=== PATIENT | female | born 1960 | race Caucasian/White ===

== ENCOUNTER 2016-09-21 06:10 | Day surgery (SDC) | payer BC ==
[2016-09-18 12:12] LABS: HEMATOCRIT 42.8 % (36.0-48.0); HEMOGLOBIN 14.2 g/dL (12-16); MCHC 33.2 g/dL (31.0-37.0); MCV 90.3 fL (80.0-100.0); MEAN PLATELET VOLUME 10.7 fL (7.4-10.4); RBC 4.74 10x6/uL (4.00-5.40); RDW 14.4 % (11.5-14.5)
[2016-09-18 12:24] LABS: APTT 25.2 SECONDS (22.8-39.4); INR 0.86 (0.85-1.17); PROTIME 11.6 SECONDS (11.6-15.0)
[~2016-09-21] VITALS: Ht 157.5 cm; Wt 68.0 kg
[~2016-09-21 06:10] MED LIST: CATAPRES0.1 MG; LEXAPRO20 MG PO
[2016-09-21 10:09] VITALS: BP 122/73; Ht 157.5 cm; Wt 68.0 kg
[2016-09-21] MEDS ORDERED: PERCOCET 10/3251 TA1 PO (14:39)
--- NOTE | 2016-09-21 15:08 | NUR ---
RECIVED PT FROM YA TA RN AT THIS TIME IN STABLE CONDITION
--- NOTE | 2016-09-21 16:35 | NUR ---
AMBULATING AROUND ROOM WITH CRUTCHES, WITH NO UNSTEADINESS OR DIZZINESS. PIV DC'D WITH TIP INTACT. PATIENT DRESSING IN PERSONAL CLOTHING WITH SPOUSE ASSISTANCE
--- NOTE | 2016-09-21 16:50 | NUR ---
DISCHARGE INSTRUCTIONS REVIEWED WITH PATIENT AND SPOUSE, PATIENT DISCHARGED HOME VIA WHEELCHAIR TO PRIVATE VEHICLE WITH SPOUSE
--- NOTE | 2016-09-25 14:19 | OP ---
PATIENT NAME: GAGANDEEP ESTRELLA MEDICAL RECORD: [id number] :62 LOCATION:[facility] ADMISSION DATE: SURGEON: RAYMOND CHATTERJEE MD DATE OF OPERATION: 09/21/2016 PREOPERATIVE DIAGNOSIS: Compressed posterior lateral tibial plateau fracture. POSTOPERATIVE DIAGNOSIS: Compressed posterior lateral tibial plateau fracture. PROCEDURES: 1. Left knee arthroscopy. 2. Left knee subchondroplasty with AccuFill. SURGEON: Raymond Chatterjee MD. ANESTHESIA: General. INTRAOPERATIVE COMPLICATIONS: None. SUMMARY OF PATHOLOGIC FINDINGS: Consistent with the preoperative MRI, the patient had a depressed posterior corner tibial plateau fracture. Nonoperative treatment had been tried for several weeks. The patient continued to have significant pain. OPERATIVE SUMMARY IN DETAIL: After obtaining the appropriate preoperative orthopedic surgery consent as well as anesthetic consultation, evaluation and clearance, the patient was brought to the operating room and placed on the operating table in supine position. After general laryngeal mask was administered, tourniquet was placed about the proximal aspect of the left lower extremity. The left lower extremity was then prepped and draped in a routine sterile fashion. The leg was elevated and exsanguinated. Tourniquet was inflated to 350 mmHg. Routine inferolateral portal was established followed by superior medial portal and inferior medial portal. Diagnostic arthroscopy revealed the patient to have relatively clean inside. The small area of depression was seen on the chondral surface; however, there was no chondral deficit or splitting. At this point, C-arm was brought in and the AccuFill trocar was guided on AP and lateral planes with the C-arm into the posterolateral corner of the tibial plateau. AccuFill was then deployed in the usual fashion. All syringes were used. Having completed this, repeat arthroscopy showed that there was no AccuFill inside the joint itself. Arthroscopy portals then were closed with 4-0 Prolene in routine interrupted fashion. After the appropriate amount of time had passed, the trocar was removed. Sterile dressings were applied. Tourniquet was deflated. The patient was awakened, taken to recovery in stable condition. All final needle and sponge counts were correct. TRANSINT:[id number] Voice Confirmation ID: [id number] DOCUMENT ID: [id number] OPERATIVE REPORT [id number] ESTRELLAGAGANDEEP OLGUIN MD, RAYMOND CHATTERJEE at 1419 CC: [id number] DICTATION DATE: 09/25/16910 ACTIVITIES CONCIERGE: 09/25/16 1210 [facility] 09/21/16 [facility] [address] [place] [address]
== END 2016-09-21 16:50 | disposition home or self-care (01) ==
LOC: D.OPS 06:10 → D.PAN 14:00 → D.OPS 16:50
PROVIDERS: Anesthesiology
DX: S82.142A Displaced bicondylar fracture of left tibia, initial encounter for closed fracture (principal); Z01.812 Encounter for preprocedural laboratory examination

== ENCOUNTER → 2018-07-11 15:00 | Outpatient (CLI) | payer BC ==
[2016-09-21 10:09] VITALS: BMI 27.5
[~2018-07-11 15:00] MED LIST changes: +PERCOCET 10/3251 TA1 PO
== END | disposition home or self-care (01) ==
LOC: D.MRI 15:00
PROVIDERS: ATTEND Orthopaedic Surgery
DX: S83.231A Complex tear of medial meniscus, current injury, right knee, initial encounter (principal); X58.XXXA Exposure to other specified factors, initial encounter